=== PATIENT | female | born 1995 | race American Indian/Alaskan Native ===

== ENCOUNTER 2022-02-22 13:11 | Inpatient (IN) | payer OTHER ==
[~2022-02-22] VITALS: Ht 154.9 cm; Wt 83.0 kg
--- NOTE | 2022-02-22 14:00 | NUR ---
COVID SWAB COLLECTED SENT TO LAB
--- NOTE | 2022-02-22 18:38 | PR ---
[facility] [address] [place], [place] [address] Signed Progress Notes IP Datetime Report Generated by CPN: 02/22/2022 18:38 PROGRESS NOTES: [id number] Impression: Reassuring Heart Rate Plan: Continue Present Management Informed Consent Obtain: Induction of Labor Other Informed Consents: Augmentation of labor VITAL SIGNS: [id number] Vital Signs: Reviewed; Within Normal Limits EXAM: [id number] Dilatation: 1.5 Effacement: 60 Station: -3 Contractions: Irregular nonpainful MEMBRANES: [id number] Amniotic Fluid Color: Clear Comments: Pt seen and examined. Doing well. Rating contractions as mild; 3/10. No fevers/chills or abnormal discharge. No complaints at this time. Continue augmentation per protocol. Consider IUPC if unchanged at next check FETUS A: [id number] FHR Baseline: 125 Variability: Moderate 6-25bpm Accelerations: 15X15 Decelerations: None FHR Category: Category I Presentation: Vertex Comments on Fetus A: No evidence of metabolic acidosis FETUS B: [id number] Signing Physician: Carina Kaiser DO Copies: ~ *Electronically Signed* 02/22/22 1838 CARINA KAISER DO PATIENT NAME: AJITH MENDES PROGRESS NOTE DATE OF : [birth year] PHYSICIAN: CARINA KAISER DO RPT #: [id number] REPORT IS CONFIDENTIAL AND NOT TO BE RELEASED WITHOUT AUTHORIZATION
--- NOTE | 2022-02-22 21:28 | PR ---
[facility] [address] [place], [place] [address] Signed Progress Notes IP Datetime Report Generated by CPN: 02/22/2022 21:28 PROGRESS NOTES: [id number] Impression: Normal Progression of Labor; Reassuring Heart Rate Procedures: Intrauterine Pressure Catheter; Sterile Vag Exam Plan: Continue Present Management Informed Consent Obtain: Vaginal Delivery Other Informed Consents: Augmentation of labor VITAL SIGNS: [id number] Vital Signs: Reviewed; Within Normal Limits EXAM: [id number] Dilatation: 4.0 Effacement: 90 Station: -2 Contractions: Irregular nonpainful MEMBRANES: [id number] Amniotic Fluid Color: Clear Comments: Pt seen and examined. Doing well. Epidural kindly placed by anesthesia and pt reports less discomfort. Cx initially 1.5 / 90 on recheck. IUPC placed w/out difficulty and with gentle insertion of IUPC cervix now 4/90/-2. Reviewed anticipated course of remainder of labor and delivery. All questions answered. FETUS A: [id number] FHR Baseline: 125 Variability: Moderate 6-25bpm Accelerations: 15X15 Decelerations: None FHR Category: Category I Presentation: Vertex Comments on Fetus A: No evidence of metabolic acidosis FETUS B: [id number] Signing Physician: Carina Kaiser DO Copies: ~ *Electronically Signed* 02/22/222127 CARINA KAISER DO PATIENT NAME: AJITH MENDES PROGRESS NOTE DATE OF : [birth year] PHYSICIAN: CARINA KAISER DO RPT #: [id number] REPORT IS CONFIDENTIAL AND NOT TO BE RELEASED WITHOUT AUTHORIZATION
--- NOTE | 2022-02-23 04:35 | PR ---
[facility] [address] [place], [place] [address] Signed Progress Notes IP Datetime Report Generated by CHRISTIAN: 02/23/2022 04:34 PROGRESS NOTES: [id number] Impression: Normal Progression of Labor; Reassuring Heart Rate Procedures: Scalp Electrode Plan: Antibiotic Therapy Informed Consent Obtain: Risks, Benefits and Alternatives Discussed Other Informed Consents: Abx therapy; reviewed indications for C/S if needed VITAL SIGNS: [id number] Vital Signs: Reviewed; Within Normal Limits EXAM: [id number] Dilatation: 9.0 Effacement: 90 Station: 0 Contractions: Irregular nonpainful MEMBRANES: [id number] Amniotic Fluid Color: Clear Comments: Pt seen and examined. Pt received epidural bolus due to pain and has also developed maternal fevers. Hypotension noted w/ bolus and pt was given ephedrine. Now maternal tachycardia noted. Fever persisted despite oral tylenol. Pt reports that she feels well. Discussed differential dx of maternal fever, and recommended treatment for presumptive chorioamnionitis w/ Ampicillin 2g IV q6 hr and Gentamicin 5mg/kg daily until delivery. Reviewed heart tracing. Overall reassuring w/ moderate variability. Will closely monitor FETUS A: [id number] FHR Baseline: 125 Variability: Moderate 6-25bpm Accelerations: 15X15 Decelerations: None FHR Category: Category I Presentation: Vertex Comments on Fetus A: No evidence of metabolic acidosis FETUS B: [id number] Signing Physician: Carina Kaiser DO Copies: *Electronically Signed* 02/23/22 0434 CARINA KAISER DO PATIENT NAME: AJITH MENDES PROGRESS NOTE DATE OF : [birth year] PHYSICIAN: CARINA KAISER DO RPT #: [id number] REPORT IS CONFIDENTIAL AND NOT TO BE RELEASED WITHOUT AUTHORIZATION [address] [place] [address] Signed ~ *Electronically Signed* 02/23/22 0434 CARINA KAISER DO PATIENT NAME: AJITH MENDES PROGRESS NOTE DATE OF : [birth year] PHYSICIAN: CARINA KAISER DO RPT #: [id number] REPORT IS CONFIDENTIAL AND NOT TO BE RELEASED WITHOUT AUTHORIZATION
--- NOTE | 2022-02-23 05:39 | PR ---
[facility] [address] [place], [place] [address] Signed Progress Notes IP Datetime Report Generated by CHRISTIAN: 02/23/2022 05:39 PROGRESS NOTES: [id number] Impression: Normal Progression of Labor Procedures: Sterile Vag Exam; Amnio Infusion Plan: Antibiotic Therapy Other Plans: Stop pitocin Informed Consent Obtain: Risks, Benefits and Alternatives Discussed Other Informed Consents: Abx therapy; reviewed indications for C/S if needed VITAL SIGNS: [id number] Vital Signs: Reviewed; Within Normal Limits EXAM: [id number] Dilatation: 9.5 Effacement: 90 Station: 0 Contractions: Irregular nonpainful MEMBRANES: [id number] Amniotic Fluid Color: Clear Comments: Pt seen and examined. Sleeping w/ epidural. Recurrent late decelerations noted. Amnioinfusion had been initiated for variable decelerations. Will stop pitocin and attempt intrauterine recussitation. Discussed FHT w/ pt and indication for if not improved. Pt understands and agrees. FETUS A: [id number] FHR Baseline: 125 Variability: Moderate 6-25bpm Accelerations: 15X15 Decelerations: None FHR Category: Category I Presentation: Vertex Comments on Fetus A: No evidence of metabolic acidosis FETUS B: [id number] Signing Physician: Carina Kaiser DO Copies: ~ *Electronically Signed* 02/23/22 0539 CARINA KAISER DO PATIENT NAME: AJITH MENDES PROGRESS NOTE DATE OF : [birth year] PHYSICIAN: CARINA KAISER DO RPT #: [id number] REPORT IS CONFIDENTIAL AND NOT TO BE RELEASED WITHOUT AUTHORIZATION
--- NOTE | 2022-02-23 06:23 | PR ---
[facility] [address] [place], [place] [address] Signed Progress Notes IP Datetime Report Generated by CPEpi: 02/23/2022 06:23 PROGRESS NOTES: [id number] Impression: Non-reassuring Heart Rate Procedures: Sterile Vag Exam Plan: Deliver- Section Other Plans: Stop pitocin Informed Consent Obtain: Section Delivery; Risks, Benefits and Alternatives Discussed Other Informed Consents: Abx therapy; reviewed indications for C/S if needed VITAL SIGNS: [id number] Vital Signs: Reviewed; Within Normal Limits EXAM: [id number] Dilatation: 9.5 Effacement: 90 Station: 0 Contractions: Irregular nonpainful MEMBRANES: [id number] Amniotic Fluid Color: Clear Comments: Pt seen and evaluated. Cx unchanged. Minimal varibility and tachycardia noted. Recommend delivery via primary low transverse . Risks/benefits and alternatives discussed in detail. All questions answered. Consents signed. OR crew, dietitian assistant, and bottom painter notified and en route. Clindamycin 900mg IV and Azithromycin 500mg IV added. FETUS A: [id number] FHR Baseline: 125 Variability: Moderate 6-25bpm Accelerations: 15X15 Decelerations: None FHR Category: Category I Presentation: Vertex Comments on Fetus A: No evidence of metabolic acidosis FETUS B: [id number] Signing Physician: Carina Kaiser DO Copies: *Electronically Signed* 02/23/22 0623 CARINA KAISER DO PATIENT NAME: AJITH MENDES PROGRESS NOTE DATE OF : [birth year] PHYSICIAN: CARINA KAISER DO RPT #: [id number] REPORT IS CONFIDENTIAL AND NOT TO BE RELEASED WITHOUT AUTHORIZATION [address] [place], [place] [address] Signed ~ *Electronically Signed* 02/23/22622 CARINA KAISER DO PATIENT NAME: AJITH MENDES PROGRESS NOTE DATE OF : [birth year] PHYSICIAN: CARINA KAISER DO RPT #: [id number] REPORT IS CONFIDENTIAL AND NOT TO BE RELEASED WITHOUT AUTHORIZATION
--- NOTE | 2022-02-23 08:00 | NUR ---
02/23/22 0800 Lorri Dixon 0749 PATIENT ARRIVES TO [facility] ROOM AWAKE OFF/ON, BUT DROWSY. RESP EVEN AND UNLABORED, NC AT 2 LITERS. PATIENT DENIES PAIN OR NAUSEA. BABY IS IN NURSERY. 0800 PATIENT CONTINUES TO BE AWAKE OFF/ON, BUT DROWSY. CONTINUES TO DENY PAIN OR NAUSEA. RESP EVEN AND UNLABORED, OXYGEN OFF.
--- NOTE | 2022-02-23 08:25 | NUR ---
THIS RN AT PT BEDSIDE. IV FLUIDS INFUSING ON STRAIGHT TUBING. DR LARSEN IN ROOM AT THIS TIME ANSWERING QUESTIONS. DISCUSSED PAIN MANAGEMENT WITH PT AND FAMILY. AND OTHER FAMILY AT BEDSIDE. CALL LIGHT WITHIN REACH. THIS RN REMAINS AT BEDSIDE.
--- NOTE | 2022-02-23 08:30 | NUR ---
DR PRABHAKAR NOW IN ROOM WITH PT TO DISCUSS PLAN OF CARE FOR CAIT MENDES WITH PT AND PT FAMILY. ALL QUESTIONS ANSWERED.
--- NOTE | 2022-02-23 08:36 | NUR ---
PT REPORTS FEELING COLD. ORAL TEMPERATURE OF 99.6. FUNDUS CHECK WNL. NO BLEEDING NOTED ON ASSESSMENT
--- NOTE | 2022-02-23 08:49 | NUR ---
WORKERS' COMPENSATION HEARINGS OFFICER IN ROOM TO COLLECT BLOOD SAMPLE.
--- NOTE | 2022-02-23 08:51 | NUR ---
PT HR UP TO 150 WITH SLIGHT MOVEMENT IN BED. PRIMARY NURSE PILAR HALE UPDATED AT THIS TIME. THIS RN REMAINS AT BEDSIDE. IV FLUIDS CONTINUE TO INFUSE.
--- NOTE | 2022-02-23 09:21 | NUR ---
OXYTOCIN ON STRAIGHT TUBING FINISHED INFUSING. NOW INFUSING LR AT 100 MLS/HR (SEE EMAR). PT RESTING WITH EYES CLOSED, RESPIRATIONS EVEN AND UNLABORED NO VAGINAL BLLEDING NOTED. FUNDUS CHECK Q15 MINUTES CONTINUE. THIS RN AT BEDSIDE. FAMILY IN ROOM. QUESTIONS ABOUT PLAN OF CARE ANSWERED. WILL CONTINUE TO CLOSELY MONITOR.
--- NOTE | 2022-02-23 09:43 | NUR ---
THANH PEREZ IN THE ROOM TO HAVE CONSENT SIGNED. PT MARYAM ANSWERED. THIS RN AND LIANNA CRUZ AT BEDSIDE.
--- NOTE | 2022-02-23 09:49 | NUR ---
PROCEDURE STARTED. WELL TOLERATED BY PT. HR 120-125. RESPIRATIONS EVEN AND UNLABORED. THIS RN REMAINS AT BEDSIDE.
--- NOTE | 2022-02-23 09:57 | NUR ---
TAP BLOCKED COMPLETED AT THIS TIME. PROCEDURE WELL TOLERATED BY PT. THIS RN REMAINS AT BEDSIDE.
--- NOTE | 2022-02-23 10:05 | NUR ---
PT'S HAS ORAL TEMP OF 101.2, HR REMAINS [address] LARSEN CALLED AND UPDATED ON PT CONDITION AT THIS TIME. NO NEW ORDERS. WILL CONTINUE TO MONITOR.
--- NOTE | 2022-02-24 08:17 | PR ---
[facility] [address] [place], [place] [address] Signed PP Progress Notes Datetime Report Generated by CPEpi: 02/24/2022 08:17 SUBJECTIVE: [id number] Pain: Within Normal Limits Nausea/Vomiting: Denies Flatus: Yes Bowel Movement: No Vital Signs: [id number] Vital Signs: Reviewed; Within Normal Limits Notable Details: Last fever _22 hrs prior Cardiovascular: Normal Respiratory: Normal Abdomen/Uterus: Normal Lochia: Normal Vulva/Perineum: Not Done Breasts: Not Done CVA Tenderness: Normal Extremities: Normal Incision: Normal Progress: Normal Exam Comments: Fundus firm U-2 nontender. Incision healing well IMPRESSION/PLAN/PROCEDURES: [id number] Impression: Normal Progression; Endometritis Plan: Antibiotic Therapy; Discharge Procedures: Antibiotics Other Procedures: Iron infusion Progress Notes: Pt seen and examined. Doing well. Ambulating and tolerating full diet. Pain and lochia minimal. Good urine output. Afebrile since _ 10am yesterday morning. No chills. Will complete abx until 24 hr afebrile. Hgb 8.5. Denies lightheadedness or dizziness. Would like to be discharged this morning so she can be with her baby who was transferred to [facility] NICU. Discussed iron infusion and pt considering. Reviewed discharge instructions in detail. Plan staple removal in office in 2-3 days. Pt to call to coordinate. Undecided on contraception Signing Physician: Carina Kaiser DO Copies: *Electronically Signed* 02/24/22816 CARINA KAISER DO PATIENT NAME: AJITH MENDES PROGRESS NOTE DATE OF : [birth year] PHYSICIAN: CARINA KAISER DO RPT #: [id number] REPORT IS CONFIDENTIAL AND NOT TO BE RELEASED WITHOUT AUTHORIZATION [address] [place] [address] Signed ~ *Electronically Signed* 02/24/22 0817 CARINA KAISER DO PATIENT NAME: AJITH MENDES PROGRESS NOTE DATE OF : [birth year] PHYSICIAN: CARINA KAISER DO RPT #: [id number] REPORT IS CONFIDENTIAL AND NOT TO BE RELEASED WITHOUT AUTHORIZATION
--- NOTE | 2022-02-27 10:52 | PATH ---
[facility] [address] [place], [place] [address] Signed SPECIMEN(S): A PLACENTA SPECIMEN SOURCE: A. PLACENTA CLINICAL HISTORY: Failure to progress. . Chorio. 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 - Mild acute chorioamnionitis (grade 1/2; stage 1/3) with inflammatory response in the chorionic vessels (grade 1/2; stage 1/3). - Pigmented macrophages suggestive of meconium. - Chronic deciduitis. BRP:cml:C2NR MICROSCOPIC EXAMINATION: Histologic sections of all submitted blocks are examined by light microscopy. These findings, together with the gross examination, support the pathologic diagnosis. GROSS DESCRIPTION: The specimen, labeled "T[place]on, placenta," is received fresh and placed in formalin and consists of a ballard discoid placenta with the following parameters: Umbilical cord: Insertion eccentric, measurement 14.6 x 1.6 cm; trivascular. Additional cord segment: 8.1 cm and 17.1 cm in length x 1.5 cm in diameter Cord coiling index (per 10 cm): 6. Lesions: Not grossly identified. Membranes: Insertion site: Marginal, gibbs-purple, dull and translucent, rupture site cannot be determined. Intact. Other: Not grossly identified. Chorionic Plate: Normal radiating vascular pattern, dark gibbs to purple-blue and opaque. Lesions: Not grossly identified. Other: Not grossly identified. Maternal Surface: Normal cotyledons, intact. Lesions: Not grossly identified. Measurement: 19.1 x 17.1 x 3.2 cm. Weight (trimmed): 545 g Cut Surface: Maroon and spongy. Lesions: Not grossly identified. Basal plate fibrin 0.1 cm in thickness. Other Findings: Not grossly identified. Cassette Summary: PATIENT NAME: AJITH MENDES PATHOLOGY DATE OF : [birth year] REPORT #: [id number] PHYSICIAN: JOAQUIM PATHOLOGY PCP: [facility] REPORT IS CONFIDENTIAL AND NOT TO BE RELEASED WITHOUT AUTHORIZATION [facility] [address] [place], [place] [address] Signed (A1) membranes and umbilical cord (A2) placenta parenchyma (A3) placenta parenchyma (A4) placenta parenchyma. KD (under the direct supervision of a pathologist) The Gross Description was prepared using a voice recognition system. The report was reviewed for accuracy; however, sound-alike word errors, addition and/or deletions may occur. If there is any question about this report, please contact Client Services. PERFORMING LABORATORY: The technical component was performed by [employer], [address] [place] [id number] (CLIA# [id number]). [facility], [address] [address] (CLIA# [id number]). Diagnostician: Adam Love MD Pathologist Electronically Signed 02/27/2022 Copies: ~ PATIENT NAME: AJITH MENDES PATHOLOGY DATE OF : [birth year] REPORT #: [id number] PHYSICIAN: JOAQUIM GILBERT PCP: MELISSA [facility] REPORT IS CONFIDENTIAL AND NOT TO BE RELEASED WITHOUT AUTHORIZATION
== END 2022-02-24 15:31 | disposition home or self-care (01) | DRG 786 ==
LOC: FBCO 13:11 → FBC 13:41
PROVIDERS: ADMIT Obstetrics & Gynecology; ATTEND Obstetrics & Gynecology
PROC: 10D00Z1 Extraction of Products of Conception, Low, Open Approach (ICD-10-PCS; principal; 2022-02-23 06:49)
DX: O42.02 Full-term premature rupture of membranes, onset of labor within 24 hours of rupture (principal); O41.1230 Chorioamnionitis, third trimester, not applicable or unspecified; D62 Acute posthemorrhagic anemia; Z3A.39 39 weeks gestation of pregnancy; Z37.0 Single live birth; Z20.822 Contact with and (suspected) exposure to COVID-19; O76 Abnormality in fetal heart rate and rhythm complicating labor and delivery; O99.02 Anemia complicating childbirth; O77.0 Labor and delivery complicated by meconium in amniotic fluid; O62.1 Secondary uterine inertia
CPT/HCPCS: 36415; 80053; 80170; 82803; 85025; 85027; 86850; 86900; 86901; 87040; 94660; A9270; C9803; J0290; J0456; J1100; J1580; J1650; J1885; J2001; J2274; J2405; J2550; J2590; J2795; J7060; J7121; U0003

== ENCOUNTER 2022-08-05 23:00 | Emergency (ER) | payer OTHER ==
[~2022-08-05] VITALS: Ht 154.9 cm; Wt 86.6 kg
[2022-08-06] MEDS ORDERED: AMOXICILLIN500 MG PO (00:22)
[2022-08-06] MEDS ORDERED: ULTRAM50 MG PO (00:29)
== END 2022-08-06 00:45 | disposition home or self-care (01) ==
LOC: ED 23:00
DX: K02.9 Dental caries, unspecified (principal)
CPT/HCPCS: 99282; A9270

== ENCOUNTER 2024-04-29 23:30 | Emergency (ER) | payer OTHER ==
[~2024-04-29] VITALS: Ht 154.9 cm; Wt 72.0 kg
[~2024-04-29 23:30] MED LIST: AMOXICILLIN500 MG PO; ULTRAM50 MG PO
[2024-04-30] MEDS ORDERED: IBUPROFEN 800 MG TAB PO ONE (00:15)
[2024-04-30] MEDS ORDERED: PENICILLIN G BENZATHINE 1.2 MUNITS/2 ML SYR IM ONE (00:30)
[2024-04-30 01:02] VITALS: BP 126/77
== END 2024-04-30 01:03 | disposition home or self-care (01) ==
LOC: ED 23:30
DX: J02.0 Streptococcal pharyngitis (principal)
CPT/HCPCS: 87651; 96372; 99282-25; A9270; J0561